=== PATIENT | male | born 1985 | race Asian ===

== ENCOUNTER 2018-03-21 20:12 | Emergency (ER) | payer SELFPAY ==
--- NOTE | 2018-03-21 20:45 | ED Physician Documentation ---
PD HPI DYSPNEA - Stated complaint Stated Complaint: SOA/WHEEZING - Chief complaint Chief Complaint: Resp - History obtained from History obtained from: Patient - History of Present Illness Timing - onset: How many days ago (2) Timing - onset during: Rest Timing - duration: Days (2) Timing - details: Gradual onset Pain level max: 7 Pain level now: 5 Inciting event(s): URI Improved by: Rest, Other (nyquil) Worsened by: Laying flat, Coughing Associated symptoms: Cough, Chest pain / discomfort (L sided rib pain with coughing). No: Fever, Hemoptysis, Wheezing Similar symptoms before: Diagnosis (asthma) Recently seen: Not recently seen Review of Systems Constitutional: reports: Chills. denies: Fever Nose: reports: Rhinorrhea / runny nose, Congestion Throat: denies: Sore throat Respiratory: reports: Cough GI: denies: Abdominal Pain, Nausea, Vomiting, Diarrhea Skin: denies: Rash Musculoskeletal: denies: Neck pain, Back pain Neurologic: denies: Headache PD PAST MEDICAL HISTORY - Past Medical History Past Medical History: No - Past Surgical History Past Surgical History: No - Present Medications Home Medications: Ambulatory Orders Medication Instructions Recorded Confirmed Albuterol Sulf [Ventolin Hfa 1 - 2 puffs INH Q4HR PRN #1 inhaler 03/21/18 Inhaler] - Allergies Allergies/Adverse Reactions: Allergies Allergy/AdvReac Type Severity Reaction Status Date / Time No Known Drug Allergies Allergy Verified 03/21/18 21:02 - Social History Does the pt smoke?: Yes Does the pt have substance abuse?: No - Family History Family history: reports: Non contributory PD ED PE NORMAL - Vitals Vital signs reviewed: Yes - General General: Alert and oriented X 3, No acute distress, Other (texting on his cellphone throughout the interview and exam.) - HEENT HEENT: PERRL, Ears normal, Moist mucous membranes, Pharynx benign - Neck Neck: Supple, no meningeal sign, No adenopathy - Cardiac Cardiac: RRR, Strong equal pulses - Respiratory Respiratory: No respiratory distress, Other (bilaterally crackles.) - Abdomen Abdomen: Soft, Non tender, Non distended - Derm Derm: Warm and dry, No rash - Neuro Neuro: Alert and oriented X 3 - Psych Psych: Normal mood, Normal affect Results - Vitals Vitals: Vital Signs - 24 hr 03/21/18 03/21/18 03/21/18 20:15 21:16 21:50 Temperature 36.8 C Heart Rate 81 74 60 Respiratory 18 18 18 Rate Blood Pressure 129/78 117/74 O2 Saturation 99 95 Oxygen O2 Source Room air - Rads (name of study) Chest x-ray Radiology: Prelim report reviewed, EMP read contemporaneously, See rad report ( No acute disease) PD MEDICAL DECISION MAKING - ED course Complexity details: reviewed results, re-evaluated patient, considered differential, d/w patient ED course: Patient is a 32-year-old male who presents to the emergency department with what appears to be a viral upper respiratory infection. He is well-appearing, nontoxic. Afebrile. No hypoxia. Normal chest x-ray. Feels better after nebulizer treatment. Did have an albuterol inhaler, but ran out last week. Will refill this for him and continue supportive care. Patient counseled regarding signs and symptoms for which I believe and urgent re-evaluation would be necessary. Patient with good understanding of and agreement to plan and is comfortable going home at this time This document was made in part using voice recognition software. While efforts are made to proofread this document, sound alike and grammatical errors may occur. Departure - Departure Disposition: 01 Home, Self Care Clinical Impression: Upper respiratory tract infection Qualifiers: URI type: unspecified viral URI Qualified Code(s): J06.9 - Acute upper respiratory infection, unspecified Condition: Good Instructions: ED Viral Syndrome Follow-Up: your,doctor in 1 week [Other] Prescriptions: Albuterol Sulf [Ventolin Hfa Inhaler] 1 - 2 puffs INH Q4HR PRN #1 inhaler PRN Reason: Shortness Of Air/Wheezing Comments: Return if you worsen. Use the inhaler as prescribed. Discharge Date/Time: 03/21/18 21:50
[2018-03-21] MEDS ORDERED: ALBUTEROL NEB 2.5 MG/3 ML INH STA (21:02)
--- NOTE | 2018-03-21 21:24 | XRAY Report ---
EXAM: CHEST RADIOGRAPHY EXAM DATE: 03/21/2018 09:13 PM. CLINICAL HISTORY: Cough, chills. COMPARISON: None. TECHNIQUE: 2 views. FINDINGS: Lungs/Pleura: No focal opacities evident. No pleural effusion. No pneumothorax. Normal volumes. Mediastinum: Heart and mediastinal contours are unremarkable. Other: None. IMPRESSION: Negative chest. [facility] Referring Provider Line: [phone] SITE ID: [id number]
--- NOTE | 2018-03-21 21:24 | XRAY Preliminary Report ---
Exam: XR CHEST 2 VIEW X-RAY IMPRESSION: Negative chest. [facility] SITE ID: [id number]
[2018-03-21 21:51] VITALS: BP 117/74
== END 2018-03-21 21:50 | disposition home or self-care (01) ==
LOC: ED 20:12
DX: J06.9 Acute upper respiratory infection, unspecified (principal)
CPT/HCPCS: 71046; 94640; 99283